=== PATIENT | male | born 1945 ===

== ENCOUNTER → 2019-03-08 09:53 | Day surgery (SDC) | payer MEDICARE ==
[~2019-03-08 09:53] MED LIST: Acetaminophen TAB* 325 MG PO PRN; Buffered Lidocaine 1% SYRIN* 1 ML/SYRINGE INTRADERM ONE; Bupivacaine 0.25% SDV PF* 10 ML VIAL INJ ONE; Dexamethasone IV* 4 MG/ML 1 ML (4 MG) IV SLOW PU ONE; Dexamethasone IV* 4 MG/ML 1 ML (4 MG) ONE; DiMENhydriNATE IV* 50 MG/ML VIAL IV PUSH PRN; Famotidine TAB* 20 MG ONE; Famotidine TAB* 20 MG PO ONE; Ketorolac INJ* 30 MG/ML 1 ML VIAL IV PRN; Lactated Ringers 1000 ML Bag* 1,000 ML IV SCH; Lidocaine 1% w EPI 1:100,000* 30 ML VIAL ONE; Lidocaine 2% PF * 5 ML VIAL ONE; Naloxone* 0.4 MG/ML 1 ML VIAL IV PRN; Propofol* 10 MG/ML 20 ML BTL ONE; ceFAZolin 2 GM in NS PREMIX(*) 2 GM/100 ML BAG IVPB ONE; fentaNYL* 50 MCG/ML 2 ML VIAL (100 MCG VIAL) IV PRN; fentaNYL* 50 MCG/ML 2 ML VIAL (100 MCG VIAL) ONE; oxyCODONE/Acetamin 5/325 MG* TAB PO PRN
[2019-03-08 15:22] VITALS: BP 128/73
--- NOTE | 2019-03-08 16:52 | OP ---
DATE OF OPERATION: 03/08/19 - [facility] DATE OF : 45 SURGEON: Neftali Porras MD. WORKFORCE ANALYST: CHINTAN Corcoran. ANESTHESIOLOGIST: Dr. Yi ANESTHESIA: General. PRE-OP DIAGNOSES: 1. Left ring and small finger Dupuytren's contractures. 2. Left ring and small trigger fingers that are quite severe making it difficult for him to fully flex the fingers. POST-OP DIAGNOSES: 1. Left ring and small finger Dupuytren's contractures. 2. Left ring and small trigger fingers that are quite severe making it difficult for him to fully flex the fingers. OPERATIVE PROCEDURE: 1. Excision of Dupuytren's disease left palm and ring finger. 2. Excision of Dupuytren's disease left palm and small finger. 3. Left ring trigger finger release. 4. Left small trigger finger release. INDICATIONS: Jhonny has the quite a bit of Dupuytren's disease in both hands. He developed pretty severe trigger fingers on the left ring and small fingers. We talked about his options. He understands that after about a week after surgery, he is going to have to start working the hand very aggressively to prevent any tendon adhesions and try to work out that stiffness that has developed. Unfortunately, the only way to be able to do the trigger finger releases is to excise all the Dupuytren's tissue too. He wants to have this excised as well and see if he can get some relief of the contractures. He has pretty significant Dupuytren's contractures on the right in the ring and small fingers as well. ESTIMATED BLOOD LOSS: 5 mL. COMPLICATIONS: None. FINDINGS: See above and below. DESCRIPTION OF PROCEDURE: Jhonny was seen in the preoperative holding area. The correct site, side, and procedure were identified. We came back to the operating room where the arm was prepped and draped in the usual fashion and a time-out was performed. The arm was exsanguinated with the Esmarch and the tourniquet was inflated to 250 mmHg. I went ahead and made Fanny type incisions over the ring and small fingers. This is a Y-type incision over the splitting near the distal palmar crease to branch it onto the ring and small fingers. Dissection was carried down. Full- thickness flaps were raised off the Dupuytren's cords. I first dissected out the Dupuytren's tissue out onto the small finger. There was a retrovascular cord out onto the small finger, and abductor cord. There was also a central cord. This was all dissected free and excised including the vertical septi released. The release started proximally and worked out distally. Great care was taken to preserve the neurovascular bundles. I then went ahead in like manner dissected out all the Dupuytren's tissue out onto the ring finger where he had prominent PIP joint contracture. There were prominent retrovascular cords radially and ulnarly. This was all excised. The most prominent was the ulnar retrovascular cord. Again care was taken to preserve the neurovascular bundles. It was fully excised. Once I had released all of the cords, there was no more contractures and I had full passive motion of the joints. I then went ahead and released the A1 julio of the left small finger. I then went ahead and released the A1 julio of the left ring finger. With the trigger finger releases, I lastly made a small V-shaped incision over the middle finger ray. There was a central cord developing in the palm. This was excised. All the wounds were irrigated out. The skin was closed with 4-0 nylon suture. I did cut back the skin, the apex of each V at the creases to give me a little bit more length in the skin. The closures, it all came together very nicely. 0.25% plain Marcaine was infiltrated. The wounds were dressed with Xeroform, 4x4's, sterile Webril, and then a short-arm splint out onto the ring and small fingers holding the MP and IP joints out in extension was applied. Tourniquet was deflated and the fingers pinked up immediately. He was taken to the recovery room in stable condition. [id number]/[facility] #: [id number] TIFFANIE
== END | disposition home or self-care (01) ==
LOC: OR 09:53
PROVIDERS: ATTEND Orthopaedic Surgery Hand Surgery
DX: M72.0 Palmar fascial fibromatosis [Dupuytren] (principal); M65.342 Trigger finger, left ring finger; M65.352 Trigger finger, left little finger; I10 Essential (primary) hypertension; J45.909 Unspecified asthma, uncomplicated; M19.90 Unspecified osteoarthritis, unspecified site; Z87.891 Personal history of nicotine dependence
CPT/HCPCS: 88304; A9270-GY; J0690; J1100; J2704; J3010; J3490

== ENCOUNTER 2019-06-28 07:10 | Day surgery (SDC) | payer MEDICARE ==
[~2019-06-28 07:10] MED LIST changes: -Acetaminophen TAB* 325 MG PO PRN; -Bupivacaine 0.25% SDV PF* 10 ML VIAL INJ ONE; -Dexamethasone IV* 4 MG/ML 1 ML (4 MG) IV SLOW PU ONE; -Dexamethasone IV* 4 MG/ML 1 ML (4 MG) ONE; -DiMENhydriNATE IV* 50 MG/ML VIAL IV PUSH PRN; -Famotidine TAB* 20 MG ONE; -Famotidine TAB* 20 MG PO ONE; -Ketorolac INJ* 30 MG/ML 1 ML VIAL IV PRN; -Lidocaine 1% w EPI 1:100,000* 30 ML VIAL ONE; -Lidocaine 2% PF * 5 ML VIAL ONE; -Naloxone* 0.4 MG/ML 1 ML VIAL IV PRN; -Propofol* 10 MG/ML 20 ML BTL ONE; -ceFAZolin 2 GM in NS PREMIX(*) 2 GM/100 ML BAG IVPB ONE; -fentaNYL* 50 MCG/ML 2 ML VIAL (100 MCG VIAL) IV PRN; -fentaNYL* 50 MCG/ML 2 ML VIAL (100 MCG VIAL) ONE; -oxyCODONE/Acetamin 5/325 MG* TAB PO PRN
[2019-06-28] MEDS ORDERED: ceFAZolin 2 GM PREMIX in ORs 2 GM/50 ML BAG ONE (08:08)
[2019-06-28] MEDS ORDERED: Propofol* 10 MG/ML 20 ML BTL ONE (09:30)
[2019-06-28] MEDS ORDERED: fentaNYL* 50 MCG/ML 2 ML VIAL (100 MCG VIAL) ONE (09:30)
[2019-06-28] MEDS ORDERED: Lidocaine 2% PF * 5 ML VIAL ONE (09:30)
[2019-06-28] MEDS ORDERED: Bupivacaine 0.25% SDV PF* 10 ML VIAL INJ ONE (09:53)
[2019-06-28] MEDS ORDERED: EPHEDrine (Pressors)* 50 MG/ML VIAL ONE ×2 (10:33→13:53)
[2019-06-28] MEDS ORDERED: Phenylephrine 40 MCG/ML SYRINGE ONE (10:58)
[2019-06-28] MEDS ORDERED: Ondansetron INJ* 2 MG/ML VIAL ONE ×2 (11:49→15:07)
[2019-06-28] MEDS ORDERED: Ketorolac INJ* 30 MG/ML 1 ML VIAL ONE (11:49)
[2019-06-28 13:01] VITALS: BP 130/64
[2019-06-28] MEDS ORDERED: Phenylephrine 10 MG/ML VIAL* 1 ML VIAL ONE (14:12)
[2019-06-28] MEDS ORDERED: Dexamethasone IV* 4 MG/ML 1 ML (4 MG) ONE (15:07)
--- NOTE | 2019-06-28 22:17 | OP ---
DATE OF OPERATION: 06/28/19 - [facility] DATE OF : 45 SURGEON: Neftali Porras MD. STEAM CLEANING MACHINE OPERATOR: CHINTAN Corcoran. ANESTHESIOLOGIST: Dr. Peterson. ANESTHESIA: General. PRE-OP DIAGNOSIS: Right hand Dupuytren disease. POST-OP DIAGNOSIS: Right hand Dupuytren disease. OPERATIVE PROCEDURES: 1. Excision of Dupuytren disease, right hand and small finger. 2. Excision of Dupuytren disease, right hand and ring finger. 3. Excision of Dupuytren disease, right thumb and hand. ESTIMATED BLOOD LOSS: 5 mL. COMPLICATIONS: None. FINDINGS: See above and elbow. DESCRIPTION OF PROCEDURE: Jhonny was seen in the preoperative holding area. The correct side, site, and procedures were identified. We came back to the operating room. The arm was prepped and draped in the usual fashion and a time- out was performed. The arm was exsanguinated with the Esmarch and the tourniquet was inflated to 225 mmHg. I first raised Fanny-type flaps in line over the ring finger, the small finger, and the thumb. Additionally, he had a central cord in the palm in line with the middle finger, but not extending out on to the finger. I raised full- thickness flaps off of each of the cords. I first released the cord that was out on to the ring and small fingers. I released that proximally. I then followed it distally, releasing the vertical septi. I first raised the very large cord out on to the small finger, releasing the contracture that he had there. This was taken all the way down over the middle phalanx, where the cord was released and entirely removed. This corrected the contracture. The digital nerves had been preserved throughout the procedure. I then came to the ring finger and in like fashion, traced a retrovascular cord out on to the ring finger. This was fully excised in like manner. I then excised the central cord in line with the middle finger. Lastly, I released the cord over the palmar radial aspect of the thumb, released out proximally, and then traced it out distally, taking care to preserve the digital artery and nerve. At this point, everything was looking very good. The wound was irrigated out. I did go ahead and let the tourniquet down to make sure all the fingers pinked up immediately. Everything was looking really good. I reinflated the tourniquet. The wounds were all closed with 4-0 nylon suture. The wounds were dressed with Xeroform, 4x4, sterile Webril and then a short arm splint with the fingers in extension was applied. He was taken to the recovery room in stable condition. [id number]/[facility] #: [id number] MTDD
== END 2019-06-28 14:12 | disposition home or self-care (01) ==
LOC: OR 07:10
PROVIDERS: ATTEND Orthopaedic Surgery Hand Surgery
DX: M72.0 Palmar fascial fibromatosis [Dupuytren] (principal); I10 Essential (primary) hypertension; Z87.891 Personal history of nicotine dependence; M19.90 Unspecified osteoarthritis, unspecified site; R91.1 Solitary pulmonary nodule; J30.89 Other allergic rhinitis
CPT/HCPCS: 88304; J0690; J1100; J1885; J2405; J2704; J3010; J3490